=== PATIENT | male | born 1990 | race Two or more races ===

== ENCOUNTER 2016-12-16 02:42 | Inpatient (IN) | payer OTHER ==
[~2016-12-16] VITALS: Ht 177.8 cm; Wt 67.1 kg
--- NOTE | 2016-12-16 02:50 | NUR ---
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 UPON ARRIVAL TO ER PATIENT ON CSPINE, PATIENT IS AAOX3, NAD NOTED, VSS, NONDIAPHORETIC. ABLE TO MOVE ALL EXTREMITIES. PROPER BODY ALIGNMENT MAINTAINED. COMFORT MEASURES INITIATED.
--- NOTE | 2016-12-16 02:59 | NUR ---
started a saline lock on the rac g18, blood drawn and sent to lab.
[2016-12-16 03:09] LABS: BASOPHILS % (AUTO) 0.4 % (0.0-2.0); EOSINOPHILS # (AUTO) 0.2 /CMM (0.0-0.7); EOSINOPHILS % (AUTO) 1.8 % (0.0-6.0); HEMATOCRIT 48 % (39-51); LYMPHOCYTES # (AUTO) 1.9 /CMM (0.8-4.8); MEAN CORPUSCULAR HEMOGLOBIN 28 PG (26.0-33.0); MEAN CORPUSCULAR HGB CONC 33 g/dl (31.0-36.0); MEAN CORPUSCULAR VOLUME 85 fL (80-96); MONOCYTES # (AUTO) 0.4 /CMM (0.1-1.30); MONOCYTES % (AUTO) 4.4 % (2.0-12.0); NEUTROPHILS # (AUTO) 6.2 /CMM (1.8-8.9); NEUTROPHILS % (AUTO) 71.4 % (43.0-81.0); PLATELET COUNT (AUTO) 187 /CMM (150-450); WHITE BLOOD COUNT (AUTO) 8.6 K/uL (4.3-11.0)
[2016-12-16] MEDS ORDERED: TDAP [DIPH/PERTUSSIS/TET] 0.5 ML VIAL IM ONE ×2 (03:11→03:30)
[2016-12-16 03:23] LABS: INR 1.08 (0.87-1.13); PROTHROMBIN TIME 11.2 SECS (9.5-12.7)
[2016-12-16 03:26] LABS: ALBUMIN 4.7 g/dL (3.4-5.0); BILIRUBIN,DIRECT 0.1 mg/dL (0.0-0.2); BILIRUBIN,TOTAL 0.6 mg/dL (0.2-1.0); CALCIUM, SERUM 9.8 mg/dL (8.5-10.1); CREATININE 0.8 mg/dL (0.6-1.3); POTASSIUM 3.8 mmol/L (3.5-5.1); TOTAL PROTEIN, SERUM 8.2 g/dL (6.4-8.2)
[2016-12-16] MEDS ORDERED: ONDANSETRON HCL/PF 4 MG/2 ML VIAL ONE (03:38)
[2016-12-16] MEDS ORDERED: MORPHINE SULFATE INJ 10 MG/ML DISP.SYRIN ONE (03:38)
--- NOTE | 2016-12-16 03:50 | NUR ---
PATIENT TAKEN TO CAT SCAN.
[2016-12-16] MEDS ORDERED: IOHEXOL-300 100 ML VIAL IV ONE (04:00)
[2016-12-16] MEDS ORDERED: ONDANSETRON HCL/PF 4 MG/2 ML VIAL IV ONE (04:00)
[2016-12-16] MEDS ORDERED: MORPHINE SULFATE INJ 2 MG/ML DISP.SYRIN IV ONE (04:00)
[2016-12-16] MEDS ORDERED: IV NS 0.9% 250 ML IV ONE (04:02)
--- NOTE | 2016-12-16 04:57 | NUR ---
FAMILY AT BEDSIDE
--- NOTE | 2016-12-16 05:15 | NUR ---
lapd at bedside.
--- NOTE | 2016-12-16 05:37 | NUR ---
[facility] ASSIGNMENT [id number]
--- NOTE | 2016-12-16 05:45 | NUR ---
Report given to Elicia for admission and yara.
--- NOTE | 2016-12-16 06:07 | NUR ---
SECOND PANEL CALL
--- NOTE | 2016-12-16 06:20 | NUR ---
PANEL CALL. 4TH ATTEMPT. BACKUP ADMIT NOTIFIED.
--- NOTE | 2016-12-16 06:30 | NUR ---
MS RN NOTES NOTES: PATIENT BROUGHT UP TO MS FLOOR VIA GURNEY. AOX4, ON ROOM AIR, BREATHING EVEN AND UNLABORED. BREATH SOUNDS CLEAR TO AUSCULTATION. COMPLAINS OF MODERATE PAIN OVER LEFT RIBCAGE. PIV OVER RAC G18 INTACT AND PATENT TO FLUSH. ADMITTING CARE DONE. ORIENTED TO UNIT. WILL ENDORSE TO AM RN FOR TRINH.
--- NOTE | 2016-12-16 06:35 | NUR ---
Transferred to [facility] floor [id number], no incident noted.
[2016-12-16 06:54] VITALS: BP 128/76
[2016-12-16] MEDS ORDERED: ONDANSETRON HCL/PF 4 MG/2 ML VIAL IVP PRN (07:00)
[2016-12-16] MEDS ORDERED: Z GUARD REMEDY 2 OZ OINT TP PRN (07:00)
[2016-12-16] MEDS ORDERED: MAG HYDROX/AL HYDROX/SIMETH 30 ML UDC PO PRN (07:00)
[2016-12-16] MEDS ORDERED: MORPHINE SULFATE INJ 2 MG/ML DISP.SYRIN IV PRN (07:00)
[2016-12-16] MEDS ORDERED: MAGNESIUM HYDROXIDE 30 ML UDC PO PRN (07:00)
[2016-12-16] MEDS ORDERED: ZOLPIDEM TARTRATE 5 MG TABLET PO PRN (07:00)
[2016-12-16] MEDS ORDERED: ACETAMINOPHEN 325 MG TABLET PO PRN (07:00)
--- NOTE | 2016-12-16 07:00 | NUR ---
RN OPENING NOTES RECEIVED PATIENT IN BED RESTING, FAMILY AT BEDSIDE. A/OX4. RESPIRATIONS EVEN AND UNLABORED. NO ACUTE DISTRESS, NO SOB NOTED. PAIN ON LEFT RIBCAGE NOTED, PATIENT SAID HE CAN TOLERATE IT FOR NOW, WILL REASSESS LATER. IV SITE INTACT AND PATENT. KEPT PATIENT SAFE AND COMFORTABLE. BED IN LOW POSITION, LOCKED, SIDERAILS UPX2. CALL LIGHT IN REACH. WILL CONTINUE TO MONITOR ACCORDINGLY.
[2016-12-16 08:00] VITALS: BP 128/65
--- NOTE | 2016-12-16 09:00 | NUR ---
RN NOTES PATIENT REFUSED PHOTO OF SKIN AT THE MOMENT, FAMILY AT BEDSIDE.
--- NOTE | 2016-12-16 10:00 | NUR ---
RN NOTES CHECKED PATIENT, PATIENT WAS SLEEPING COMFORTABLY IN BED. WILL CONTINUE TO MONIOTR ACCORDINGLY.
[2016-12-16] MEDS: MORPHINE SULFATE INJ 10 MG/ML DISP.SYRIN IV PRN ×2 (11:22→20:31)
[2016-12-16] MEDS: NICOTINE PATCH (21MG) 21 MG PATCH.TD24 TD SCH (11:27)
--- NOTE | 2016-12-16 11:33 | NUR ---
RN NOTES PATIENT COMPLAINING OF GENERALIZED PAIN 10/10. MORPHINE GIVEN OREDERED. WILL REASSESS.
[2016-12-16 13:35] VITALS: BP 114/55
--- NOTE | 2016-12-16 13:35 | NUR ---
RN NOTES PER FAMILY, PATIENT TRIED TO AMBULATE THEN C/O DIZZINESS, WEAKNESS, NAUSEA, DIAPHORETIC. PATIENT WAS ASSISTED TO CHAIR THEN HE PASSED OUT. RAPID RESPONSE WAS INITIATED. RAPID RESPONSE TEAM ARRIVED ON TIME. PATIENT ALREADY RESPONSIVE UPON ASSESSMENT BUT FEELS WEAK. VITAL SIGN WNL, BP= 114/55, P= 80, R=20, T= 98.0, O2 SAT 97%, BLOOD GLUCOSE 114. ASSISTED BACK TO BED. ICU NURSE DOCUMENTED RAPID RESPONSE. WILL CONTINUE TO MONITOR ACCORDINGLY.
--- NOTE | 2016-12-16 14:20 | NUR ---
RN NOTES CHECKED ON PATIENT, IN BED ASLEEP, AROUSES EASILY. PATIENT STATED "IM OKAY". WILL CONTINUE TO MONIOTR ACCORDINGLY.
[2016-12-16 16:00] VITALS: BP 112/75
--- NOTE | 2016-12-16 19:20 | NUR ---
RN CLOSING NOTES PATIENT IN BED RESTING, FAMILY AT BEDSIDE. NO ACUTE DISTRESS, NO SOB NOTED. PAIN IS TOLERATED AT THIS TIME, NO NEED FOR PAIN MEDS PER PATIENT. ALL NEEDS ATTENDED AND PROVIDED. BED IN LOW POSITION, LOCKED, SIDERAILS UPX2, CALL LIGHT IN REACH. ENDORSED TO NIGHT RN FOR TRINH.
--- NOTE | 2016-12-16 19:30 | NUR ---
MS RN OPENING NOTES: PATIENT IN BED, AOX4, ON ROOM AIR, BREATHING EVEN AND UNLABORED. APPEARS CALM AND IN NO DISTRESS. STATES THAT HE HAS PAIN SCALED AT 7-8/10 OVER HIS LEFT ANTERIOR AND POSTERIOR RIB AREA. PIV OVER RAC G 18 INTACT AND PATENT TO FLUSH. PROVIDED FOR COMFORT AND SAFETY. BED IN LOWEST AND LOCKED POSITION, SIDERAILS UPX2. MOTHER AT BEDSIDE. ADVISED PATIENT NOT TO GET UP FROM BED SUDDENLY OR WALK UNASSISTED. PT VERBALIZED UNDERSTANDING. WILL CONT TO MONITOR.
[2016-12-16 20:00] VITALS: BP 113/65
--- NOTE | 2016-12-16 20:32 | NUR ---
RN NOTES: PT COMPLAINED OF 9/10 PAIN OVER ANTERIOR ND POSTERIOR LEFT RIB AREA. ADMINISTERED MORPHINE 2 MG IV. WILL CONT TO MONITOR.
--- NOTE | 2016-12-17 07:15 | NUR ---
MS RN AM OPENING NOTES PT IN BED. A/O X 3. ON ROOM AIR WITH EQUAL UN LABORED RESPIRATION. BED IN LOWER LOCKED POSITION WITH HANDRAIL X2 AND CALL MATTHEWS IN REACH. PT REPORTS NO PAIN. 18G IV PRESENT AND PATENT AT RIGHT AC WITH SALINE LOCK. PT AWARE OF TODAY'S POC.
[2016-12-17 07:37] LABS: BASOPHILS % (AUTO) 0.3 % (0.0-2.0); EOSINOPHILS # (AUTO) 0.2 /CMM (0.0-0.7); HEMATOCRIT 47 % (39-51); HEMOGLOBIN 15.7 g/dL (13.5-17.5); LYMPHOCYTES # (AUTO) 1.5 /CMM (0.8-4.8); LYMPHOCYTES % (AUTO) 18.7 % (20.0-44.0); MEAN CORPUSCULAR HEMOGLOBIN 28 PG (26.0-33.0); MEAN CORPUSCULAR HGB CONC 33 g/dl (31.0-36.0); MEAN CORPUSCULAR VOLUME 84 fL (80-96); MONOCYTES # (AUTO) 0.6 /CMM (0.1-1.30); MONOCYTES % (AUTO) 7.2 % (2.0-12.0); NEUTROPHILS # (AUTO) 5.7 /CMM (1.8-8.9); NEUTROPHILS % (AUTO) 71.8 % (43.0-81.0); PLATELET COUNT (AUTO) 162 /CMM (150-450); RDW COEFFICIENT OF VARIATION 13.9 (11.5-15.0); RED BLOOD CELL COUNT(AUTO) 5.59 MIL/uL (4.5-6.0); WHITE BLOOD COUNT (AUTO) 7.9 K/uL (4.3-11.0)
--- NOTE | 2016-12-17 07:51 | NUR ---
MS RN CLOSING NOTES: PATIENT IN BED, AOX4, ON ROOM AIR, BREATHING EVEN AND UNLABORED. APPEARS CALM AND IN NO DISTRESS. PIV OVER RAC G18 INTACT AND PATENT TO FLUSH. PROVIDED FOR COMFORT AND SAFETY. BED IN LOWEST AND LOCKED POSITION, SIDERAILS UPX2. NEEDS ATTENDED. NO ACUTE CHANGE IN CONDITION NOTED THROUGH SHIFT. WILL ENDORSE TO AM RN FOR TRINH.
[2016-12-17 07:53] LABS: CALCIUM, SERUM 9.3 mg/dL (8.5-10.1); CREATININE 0.9 mg/dL (0.6-1.3); MAGNESIUM 2.3 mg/dL (1.8-2.4)
[2016-12-17 08:00] VITALS: BP 136/68
[2016-12-17] MEDS: NICOTINE PATCH (21MG) 21 MG PATCH.TD24 TD SCH (08:58)
--- NOTE | 2016-12-17 09:30 | NUR ---
PER SEAN BOYD, PATIENT IS UNDER DR. URIAH BALLARD, WILL INFORM CHARGE NURSE AND ADMITTING.
--- NOTE | 2016-12-17 10:58 | NUR ---
MS FIDEL NOTES PT ATTEMPTED PHYSICAL THERAPY BUT REPORTED SEVERE PAIN WHEN MOVING AND UNABLE TO COMPLETE. PT CURRENTLY COMFORTABLE REPORTING 0/10 PAIN IN SUPINE, LOW FOWLERS POSITION. PAIN MEDICATIONS OFFERED AND REFUSED. Addendum: 12/17/16 at 1518 by BRANDON ULLOA RN PT EDUCATED ABOUT PAIN MEDICATION AND IMPORTANCE OF PAIN MANAGEMENT DISCUSSED.
[2016-12-17] MEDS: HYDROCODONE/APAP 5/325MG 1 EACH TABLET PO PRN (12:07)
[2016-12-17 12:09] VITALS: BP 118/68
--- NOTE | 2016-12-17 14:38 | NUR ---
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 POST BED BATH PT REPORTS BEING COMFORTABLE WITH TOLERABLE DISCOMFORT AND REFUSES PAIN MEDICATION. NO CONCERNS OR COMPLAINTS AT THIS TIME.
[2016-12-17 16:00] VITALS: BP 134/70
--- NOTE | 2016-12-17 17:15 | NUR ---
CALLED LEFT VOICEMAIL TO DR. KRUSE, AWAITING FOR CALL BACK.
--- NOTE | 2016-12-17 17:38 | NUR ---
RECEIVED PHONE CALL FROM DR. KRUSE, REVIEWED PATIENT'S CONDITION, HX. AND CHEST/ABDOMEN/ PELVIS CT RESULT WITH MD. PER DR. KRUSE CONTINUE PAIN MEDICATION AND HAVE PATIENT PARTICIPATE WITH PT, POSSIBLE DISCHARGE TOMORROW. PER MD HE WILL SEE THE PATIENT IN AM. CALLED DR. GANDHI TO INFORM AND DR. SAIRA TOMLIN BUT UNABLE TO SEE THE PATIENT AT THIS TIME. CHARGE NURSE MADE AWARE.
--- NOTE | 2016-12-17 18:28 | NUR ---
SPOKE TO DR. KRUSE, PER DR. KRUSE TO CALL [facility] FOR CONSULT. CALLED DR. MORGAN/[facility] (EXCHANGE) AWAITING FOR CALL BACK.
--- NOTE | 2016-12-17 18:40 | NUR ---
CHARGE NURSE SPOKE TO DR. BLANKENSHIP, PATIENT WILL BE SEEN TONIGHT BY EPIC DOCTOR PER MD.
--- NOTE | 2016-12-17 18:55 | NUR ---
MS RN CLOSING NOTES PT A/OX3, MOTHER PRESENT AT BEDSIDE. TOLERATING ROOM AIR WITH NO SOB AND O2SAT WNL. BED IN LOWEST LOCKED POSITION AND CALL MATTHEWS IN REACH. PT 18G IV PATENT WITH SALINE LOCK IN RIGHT AC. PT REPORTS NO PAIN WHEN IN POSITION OF COMFORT (LOW SEMI-FOWLERS) AND HAS REFUSED REGULAR PAIN MEDICATION DESPITE REPORTED 10/10 PAIN WHEN MOVING. ALL SCHEDULED DAY SHIFT MEDICATIONS ADMINISTERED AND DUTIES ATTENDED TO. PATIENT WITH NO CONCERNS OR COMPLAINTS AT THIS TIME.
--- NOTE | 2016-12-17 19:24 | NUR ---
RECEIVED PHONE CALL FROM DR. MORGAN, PER HE WILL SPEAK WITH DR KRUSE IN AM.
[2016-12-17 20:03] VITALS: BP 122/85
[2016-12-18] MEDS: HYDROCODONE/APAP 5/325MG 1 EACH TABLET PO PRN ×2 (07:16→12:37)
--- NOTE | 2016-12-18 07:41 | NUR ---
MS RN OPENING NOTES. PT A&Ox3 WITH MOTHER AT BEDSIDE. PT IN SUPINE LOW SEMI-FOWLERS WITH BED IN LOWEST LOCKED POSITION, X2 HANDRAIL, CALL MATTHEWS IN REACH. PT TOLERATING ROOM AIR WITHOUT SOB, LUNG HUGHES AUSCULTATED CLEAR THROUGHOUT. BOWEL SOUNDS ACTIVE. 18G IV IN RIGHT AC FLUSHED, PATENT AND SALINE LOCKED. REPORTING PAIN 4/10 IN LOWER LUMBAR AND LEFT LATERAL RIBS. PT REQUESTED NOT TO WALK WITHOUT STAFF ASSISTANCE. PT BRIEFED ON TODAY'S POC AND HAS NO CONCERNS OR COMPLAINTS AT THE TIME.
[2016-12-18 08:00] VITALS: BP_SYST 113; BP_SYST 153; BP_DIAS 72; BP_DIAS 76
[2016-12-18 08:01] VITALS: BP 113/72
[2016-12-18] MEDS ORDERED: HYDR-552 PO (08:32)
[2016-12-18] MEDS: NICOTINE PATCH (21MG) 21 MG PATCH.TD24 TD SCH (08:58)
--- NOTE | 2016-12-18 09:04 | NUR ---
MS RN NOTES PT REVIEWED BY , PT TO BE DISCHARGED HOME, FOLLOW UP WITH PCP IN 1-2 WEEKS.
--- NOTE | 2016-12-18 10:33 | NUR ---
MS RN NOTES PT SEEN BY PHYSICAL THERAPY. AMBULATED WITH WALKER AND SUPERVISION 100FT. PT TO USE WALKER AT HOME AND CONTINUE WITH HOME PHYSICAL THERAPY.
--- NOTE | 2016-12-18 17:58 | NUR ---
MS RN CLOSING NOTES/DISCHARGE. PT A&OX3 WITH MOTHER AND FAMILY MEMBER AT BEDSIDE. VITALS WNL AND IV REMOVED. DISCHARGE PACKET EXPLAINED TO PT AND MOTHER, BOTH REPORT UNDERSTANDING D/C INFORMATION AND FOLLOW UP PLAN OF CARE. PT EXPLAINED PROCESS REGARDING MISSING ITEMS AND [employer] PHONE NUMBER AND HARLETTE'S NAME SUPPLIED TO PATIENT FOR DIRECT FOLLOW UP. PT AND FAMILY WITH NO CONCERNS OR COMPLAINTS AT THIS TIME. WHEELCHAIR ESCORT TO CAR, WALKER SUPPLIED.
== END 2016-12-18 15:00 | disposition home or self-care (01) | DRG 347 ==
LOC: ER 02:44 → MED 05:43
PROVIDERS: ADMIT Internal Medicine; ATTEND Internal Medicine
DX: S32.039A Unspecified fracture of third lumbar vertebra, initial encounter for closed fracture (principal); S22.42XA Multiple fractures of ribs, left side, initial encounter for closed fracture; S32.049A Unspecified fracture of fourth lumbar vertebra, initial encounter for closed fracture; R55 Syncope and collapse; V43.52XA Car driver injured in collision with other type car in traffic accident, initial encounter; Y92.410 Unspecified street and highway as the place of occurrence of the external cause; F17.210 Nicotine dependence, cigarettes, uncomplicated; R74.0 Nonspecific elevation of levels of transaminase and lactic acid dehydrogenase [LDH]; T40.2X5A Adverse effect of other opioids, initial encounter; Y92.230 Patient room in hospital as the place of occurrence of the external cause
CPT/HCPCS: 36415; 70450-TC; 71260-TC; 72125-TC; 80048-TC; 80061-TC; 80076-TC; 82962-TC; 83735-TC; 84100-TC; 85025-TC; 85730-TC; 86850-TC; 87081-TC; 90715; 97116-TC; 97530-TC; A6403; J2270; J2405; J7050; Q9967